=== PATIENT | female | born 1990 | race Hispanic/Latino ===

== ENCOUNTER 2017-03-08 04:14 | Emergency (ER) | payer OTHER ==
--- NOTE | 2017-03-08 08:50 | RAD ---
THREE VIEWS LEFT SHOULDER: COMPARISON: None. HISTORY: Altercation at work with left shoulder pain. FINDINGS: Three views left shoulder show no evidence of acute fracture or dislocation. No degenerative change s are seen. No soft tissue swelling is present. IMPRESSION: Unremarkable exam. POS: ANN-MARIE
== END 2017-03-08 05:35 | disposition home or self-care (01) ==
LOC: SCSER 04:14
DX: M25.512 Pain in left shoulder (principal); F17.210 Nicotine dependence, cigarettes, uncomplicated

== ENCOUNTER 2019-01-01 21:58 | Emergency (ER) | payer SELFPAY ==
--- NOTE | 2019-01-01 22:19 | RAD ---
EXAM: 4 views of the left knee HISTORY: Knee pain after injury at work COMPARISON: None FINDINGS: No knee effusion is seen. There is no evidence of acute fracture or dislocation. No signifi cant degenerative changes are seen. No soft tissue swelling is present. IMPRESSION: No evidence of acute osseous abnormality.
[2019-01-01] MEDS ORDERED: Ketorolac Tromethamine 60 MG/2 ML VIAL ONE (22:20)
== END 2019-01-01 22:41 | disposition home or self-care (01) ==
LOC: ERS 21:58
DX: M25.562 Pain in left knee (principal); F41.9 Anxiety disorder, unspecified; F32.9 Major depressive disorder, single episode, unspecified; F43.10 Post-traumatic stress disorder, unspecified; Z87.891 Personal history of nicotine dependence
CPT/HCPCS: 96372; J1885

== ENCOUNTER 2019-04-29 03:11 | Emergency (ER) | payer OTHER | END 2019-04-29 04:25 | disposition home or self-care (01) | LOC: ERS 03:11 | DX: S06.0X0A Concussion without loss of consciousness, initial encounter (principal); S02.2XXA Fracture of nasal bones, initial encounter for closed fracture; F41.9 Anxiety disorder, unspecified; F32.9 Major depressive disorder, single episode, unspecified; F43.10 Post-traumatic stress disorder, unspecified; F17.210 Nicotine dependence, cigarettes, uncomplicated; Y04.2XXA Assault by strike against or bumped into by another person, initial encounter | CPT/HCPCS: 99283 ==